=== PATIENT | male | born 1935 | race Caucasian/White ===

== ENCOUNTER 2019-11-19 12:27 | Emergency (ER) | payer OTHER ==
[~2019-11-19] VITALS: Ht 177.8 cm; Wt 73.3 kg
--- NOTE | 2019-11-19 12:28 | NUR ---
BIBA AND PLACED IN BED 10
[2019-11-19 12:30] VITALS: BP 133/86
--- NOTE | 2019-11-19 12:45 | NUR ---
PT BIBA ALS S/P SYNCOPAL EPISODE WHILE HAVING A PROCEDURE TO HAVE CANCER REMOVED FROM RT SHOULDER. DAUGHTER STATES PT WAS SITTING UPRIGHT WHEN SYNCOPAL EPISODE OCCURED. DENIES HITTING HEAD/LOC. DENIES PAIN AT THIS TIME. PT PLACED ON THE MONITOR. SKIN PINK, DRY, AND WARM TO THE TOUCH. RR EVEN AND UNLABORED. PT LAYING IN SEMIFOWLERS POSITION. VSS. DAUGHTER AT BEDSIDE.
--- NOTE | 2019-11-19 12:50 | NUR ---
PT TO XRAY VIA WHEELCHAIR.
--- NOTE | 2019-11-19 13:29 | NUR ---
URINE COLLECTED FROM PT
--- NOTE | 2019-11-19 13:30 | NUR ---
PT RESTING IN BED POSITONED FOR COMFORT. RR EVEN AND UNLABORED. BED LOCKED AND IN LOW POSITION. VSS. DAUGHTER AT BEDSIDE.
[2019-11-19 13:32] LABS: BASOPHILS # (AUTO) 0.1 K/uL (0.00-0.22); BASOPHILS % (AUTO) 0.4 % (0.0-2.0); EOSINOPHILS # (AUTO) 0.1 K/uL (0-0.4); EOSINOPHILS % (AUTO) 0.8 % (0.0-4.0); HEMATOCRIT 45.4 % (36-52); HEMOGLOBIN 14.8 g/dL (12.0-18.0); LYMPHOCYTES # (AUTO) 1.1 K/uL (2.0-11.5); LYMPHOCYTES % (AUTO) 6.4 % (20.5-51.1); MEAN CORPUSCULAR HEMOGLOBIN 33 pg (27-31); MEAN CORPUSCULAR HGB CONC 33 g/dL (33-37); MEAN CORPUSCULAR VOLUME 100.8 fL (80-94); MONOCYTES % (AUTO) 5.9 % (1.7-9.3); NEUTROPHILS # (AUTO) 14.3 K/uL (1.8-7.7); NEUTROPHILS % (AUTO) 86.5 % (42.2-75.2); PLATELET COUNT (AUTO) 257 K/uL (140-450); RED BLOOD CELL COUNT(AUTO) 4.51 MIL/uL (4.20-6.10); RED CELL DISTRIBUTION WIDTH 13.9 % (11.6-13.7); WHITE BLOOD COUNT (AUTO) 16.5 K/uL (4.8-10.8)
[2019-11-19] MEDS ORDERED: LEVOFLOXACIN 500 MG/D5W PREMIX 100 ML IV ONE (14:05)
--- NOTE | 2019-11-19 14:06 | NUR ---
INFLUENZA SWAB COLLECTED FROM PT AT THIS TIME.
[2019-11-19 14:12] LABS: ANION GAP 10.1 (8-16); CHLORIDE 108 mmol/L (98-107); CREATININE 1.4 mg/dL (0.7-1.3); GLUCOSE 121 mg/dL (74-106); POTASSIUM 4.1 mmol/L (3.5-5.1); SODIUM SERUM 143 mmol/L (136-145); UREA NITROGEN, BLOOD 17 mg/dL (7-18)
[2019-11-19 14:14] LABS: APPEARANCE,URINE CLEAR (CLEAR); BILIRUBIN,URINE NEGATIVE (NEGATIVE); BLOOD, URINE 2+ (NEGATIVE); COLOR,URINE YELLOW (YELLOW); LEUKOCYTE ESTERASE ,URINE NEGATIVE (NEGATIVE); NITRITE, URINE NEGATIVE (NEGATIVE); PH,URINE 5.5 (5.0-9.0); UGLUCOSE NEGATIVE (NEGATIVE)
[2019-11-19 14:19] LABS: ALBUMIN 2.8 g/dL (3.4-5.0); ASPARTATE AMINOTRANSFERASE 19 U/L (15-37); TOTAL BILIRUBIN 0.3 mg/dL (0.0-1.0)
[2019-11-19 14:47] LABS: HYALINE CASTS, URINE 0-10 /LPF (None Seen); WBC,URINE 0-5 /HPF (0-5)
--- NOTE | 2019-11-19 15:03 | NUR ---
PT RESTING WITH EYES CLOSED, VISIBLE RISE AND FALL OF THE CHEST. RR EVEN AND UNLABORED. AROUSABLE TO NAME. VSS. WILL CONTINUE TO MONITOR.
[2019-11-19 15:42] VITALS: BP 133/86
--- NOTE | 2019-11-19 15:43 | NUR ---
DPatient discharged with v/s stable. Written and verbal after care instructions given and explained. Patient alert, oriented and verbalized understanding of instructions. Ambulatory with steady gait. All questions addressed prior to discharge. ID band removed. Patient advised to follow up with PMD. Rx of LEVAQUIN AND PREDNISONE given. Patient educated on indication of medication including possible reaction and side effects. Opportunity to ask questions provided and answered.
== END 2019-11-19 15:43 | disposition home or self-care (01) ==
LOC: MED 12:27
DX: R55 Syncope and collapse (principal); J44.9 Chronic obstructive pulmonary disease, unspecified; E86.0 Dehydration; H70.10 Chronic mastoiditis, unspecified ear; I10 Essential (primary) hypertension; I48.91 Unspecified atrial fibrillation; F03.90 Unspecified dementia, unspecified severity, without behavioral disturbance, psychotic disturbance, mood disturbance, and anxiety; Z88.0 Allergy status to penicillin
CPT/HCPCS: 36415; 70450; 71046; 80053; 81001; 83605; 84484; 85025; 87040; 87086; 87804; 93005; 96365; 99284; J1956